=== PATIENT | male | born 1975 | race Two or more races ===

== ENCOUNTER 2017-11-10 19:31 | Emergency (ER) | payer SELFPAY ==
[~2017-11-10] VITALS: Ht 165.1 cm; Wt 63.5 kg
[2017-11-10 20:26] LABS: BASO # 0.1 x10^3/uL (0.0-0.2); BASO % 1 % (0-3); EOS % 0 % (0-3); HEMOGLOBIN 17.2 g/dL (13.0-17.5); LYMPH # 4.1 x10^3/uL (1.0-4.8); LYMPH % 42 % (24-48); MEAN CORPUSCULAR HEMOGLOBIN 31 pg (25-35); MEAN CORPUSCULAR HGB CONC 35 g/dL (31-37); MEAN CORPUSCULAR VOLUME 88 fL (79-100); MONO # 0.7 x10^3/uL (0.0-1.1); MONO % 7 % (0-9); NEUT # 4.8 x10^3uL (1.8-7.7); NEUT % 50 % (31-73); PLATELET COUNT 297 x10^3/uL (140-400); RED BLOOD COUNT 5.59 x10^6/uL (4.30-5.70); RED CELL DISTRIBUTION WIDTH 13.2 % (11.5-14.5); WHITE BLOOD COUNT 9.6 x10^3/uL (4.0-11.0)
[2017-11-10 20:29] LABS: BILIRUBIN,URINE NEGATIVE (NEG); CLARITY,URINE CLEAR; COLOR,URINE YELLOW; NITRITE,URINE NEGATIVE (NEG); PROTEIN,URINE NEGATIVE (NEG-TRACE); UROBILINOGEN,URINE 0.2 mg/dL (0.2 mg/dL)
[2017-11-10 20:35] LABS: AMPHETAMINE/METHAMPHETAMINE NEG (NEG); BARBITURATES NEG (NEG); BENZODIAZEPINES NEG (NEG); CANNABINOIDS POS (NEG); COCAINE NEG (NEG); METHADONE NEG (NEG); OPIATES NEG (NEG); PHENCYCLIDINE NEG (NEG)
[2017-11-10] MEDS: ONDANSETRON PF 4 MG/2 ML VIAL. IV ONE (20:36)
[2017-11-10] MEDS: LIDO:MAALOX 1:1 20 ML SINGLE DOSE. SWSW ONE (20:37)
[2017-11-10] MEDS: ASPIRIN 325 MG TABLET PO ONE (20:37)
[2017-11-10] MEDS: MORPHINE SULFATE 4 MG/ML VIAL. IV/SQ PRN (20:38)
--- NOTE | 2017-11-10 20:38 | PHYS DOC ---
Past Medical History Past Medical History: No Pertinent History Past Surgical History: No Surgical History Alcohol Use: Heavy Additional Information: 12 BEERS TODAY,STARTED DRINKING X 5 DAYS AGO Drug Use: None Adult General Chief Complaint Chief Complaint: NAUSEA/VOMITING/DIARRHA HPI HPI Patient is a 42 year old male with no significant medical history who presents today complaining of nausea and vomiting that began this morning after drinking heavily for 5 days. Patient states he is under a lot of stress. He states he moved from [place] to [place] and go to [place] 5 days ago and found his house was not completed. He states they hit moved to a different house which also has issues. He states his been drinking for 5 days straight area patient states he drank a pack of beer today. He states he started vomiting early this morning. He states he also has a 5 out of 10 left-sided chest pain only when he vomits that began this morning. Patient describes the pain as sharp and intermittent, denies the pain radiating. Denies any previous significant medical history. Denies anything relieving his pain but states vomiting makes it worse. He states when he is not vomiting he does not have the pain. He states he was also drinking on an empty stomach He is primarily Lao-speaking but also speaks some Urdu fairly well. Review of Systems Review of Systems Constitutional: Denies fever or chills [] Eyes: Denies change in visual acuity, redness, or eye pain [] HENT: Denies nasal congestion or sore throat [] Respiratory: Denies cough or shortness of breath [] Cardiovascular: Reports left-sided chest pain GI: Reports nausea and vomiting. Denies abdominal pain, nausea, vomiting, bloody stools or diarrhea [] : Denies dysuria or hematuria [] Musculoskeletal: Denies back pain or joint pain [] Integument: Denies rash or skin lesions [] Neurologic: Denies headache, focal weakness or sensory changes [] All other systems were reviewed and found to be within normal limits, except as documented in this note. Current Medications Current Medications Current Medications Medications (Trade) Dose Ordered Sig/Yaneli Start Time Stop Time Status Last Admin Dose Admin Aspirin (Leander Aspirin) 325 mg 1X ONCE 11/10/17 20:15 11/10/17 20:19 DC 11/10/17 20:37 325 MG Morphine Sulfate (Morphine Sulfate) 4 mg PRN Q15MIN PRN 11/10/17 20:15 11/10/17 23:15 DC 11/10/17 20:38 4 MG Multi-Ingredient Mouthwash/Gargle (Gi Cocktail) 20 ml 1X ONCE 11/10/17 20:15 11/10/17 20:19 DC 11/10/17 20:37 20 ML Multivitamins 10 ml/Thiamine HCl 100 mg/Folic Acid 1 mg/Sodium Chloride 1,011.2 ml @ 1,000.088 mls/hr 1X ONCE 11/10/17 20:30 11/10/17 21:30 DC 11/10/17 20:39 1,000.088 MLS/HR Ondansetron HCl (Zofran) 4 mg 1X ONCE 11/10/17 20:15 11/10/17 20:19 DC 11/10/17 20:36 4 MG Allergies Allergies Allergies Coded Allergies Type Severity Reaction Last Updated Verified No Known Medication Allergies Allergy Unknown 11/10/17 Yes Physical Exam Physical Exam Constitutional: Well developed, well nourished, no acute distress, non-toxic appearance. [] HENT: Normocephalic, atraumatic, bilateral external ears normal, oropharynx moist, no oral exudates, nose normal. [] Eyes: PERRLA, EOMI, conjunctiva normal, no discharge. [] Neck: Normal range of motion, no tenderness, supple, no stridor. [] Cardiovascular:Heart rate regular rhythm, no murmur [] Lungs & Thorax: Bilateral breath sounds clear to auscultation [] Abdomen: Bowel sounds normal, soft, no tenderness, no masses, no pulsatile masses. [] Skin: Warm, dry, no erythema, no rash. [] Back: No tenderness, no CVA tenderness. [] Extremities: No tenderness, no cyanosis, no clubbing, ROM intact, no edema. [] Neurologic: Alert and oriented X 3, normal motor function, normal sensory function, no focal deficits noted. [] Psychologic: Affect normal, judgement normal, mood normal. [] Current Patient Data Vital Signs Vital Signs Date Time Temp Pulse Resp B/P (MAP) Pulse Ox O2 Delivery O2 Flow Rate FiO2 11/10/17 23:00 94 16 100 Room Air 11/10/17 22:30 152/99 (116) 9/13/18 19:32 98.8 98.8 Lab Values Laboratory Tests Test 11/10/17 20:15 11/10/17 20:20 White Blood Count 9.6 x10^3/uL (4.0-11.0) Red Blood Count 5.59 x10^6/uL (4.30-5.70) Hemoglobin 17.2 g/dL (13.0-17.5) Hematocrit 49.0 % (39.0-53.0) Mean Corpuscular Volume 88 fL (79-100) Mean Corpuscular Hemoglobin 31 pg (25-35) Mean Corpuscular Hemoglobin Concent 35 g/dL (31-37) Red Cell Distribution Width 13.2 % (11.5-14.5) Platelet Count 297 x10^3/uL (140-400) Neutrophils (%) (Auto) 50 % (31-73) Lymphocytes (%) (Auto) 42 % (24-48) Monocytes (%) (Auto) 7 % (0-9) Eosinophils (%) (Auto) 0 % (0-3) Basophils (%) (Auto) 1 % (0-3) Neutrophils # (Auto) 4.8 x10^3uL (1.8-7.7) Lymphocytes # (Auto) 4.1 x10^3/uL (1.0-4.8) Monocytes # (Auto) 0.7 x10^3/uL (0.0-1.1) Eosinophils # (Auto) 0.0 x10^3/uL (0.0-0.7) Basophils # (Auto) 0.1 x10^3/uL (0.0-0.2) Prothrombin Time 12.3 SEC (11.7-14.0) Prothrombin Time INR 1.0 (0.8-1.1) PTT 30 SEC (24-38) Sodium Level 145 mmol/L (136-145) Potassium Level 3.6 mmol/L (3.5-5.1) Chloride Level 105 mmol/L (98-107) Carbon Dioxide Level 28 mmol/L (21-32) Anion Gap 12 (6-14) Blood Urea Nitrogen 4 mg/dL (8-26) L Creatinine 0.8 mg/dL (0.7-1.3) Estimated GFR (Cockcroft-Gault) 106.0 BUN/Creatinine Ratio 5 (6-20) L Glucose Level 121 mg/dL (70-99) H Calcium Level 8.9 mg/dL (8.5-10.1) Magnesium Level 2.0 mg/dL (1.8-2.4) Total Bilirubin 0.5 mg/dL (0.2-1.0) Aspartate Amino Transferase (AST) 25 U/L (15-37) Alanine Aminotransferase (ALT) 38 U/L (16-63) Alkaline Phosphatase 80 U/L (46-116) Creatine Kinase 105 U/L (39-308) Creatine Kinase MB (Mass) 0.9 ng/mL (0.0-3.6) Creatine Kinase MB Relative Index 0.9 % (0-4) Troponin I Quantitative < 0.017 ng/mL (0.000-0.055) LF-Bkr-A-Type Natriuretic Peptide 13 pg/mL (0-124) Total Protein 8.2 g/dL (6.4-8.2) Albumin 4.3 g/dL (3.4-5.0) Albumin/Globulin Ratio 1.1 (1.0-1.7) Lipase 163 U/L (73-393) Thyroid Stimulating Hormone (TSH) 1.825 uIU/mL (0.358-3.74) Urine Collection Type Unknown Urine Color Yellow Urine Clarity Clear Urine pH 7.0 Urine Specific [place] <=1.005 Urine Protein Negative mg/dL (NEG-TRACE) Urine Glucose (UA) Negative mg/dL (NEG) Urine Ketones (Stick) Negative mg/dL (NEG) Urine Blood Negative (NEG) Urine Nitrite Negative (NEG) Urine Bilirubin Negative (NEG) Urine Urobilinogen Dipstick 0.2 mg/dL (0.2 mg/dL) Urine Leukocyte Esterase Negative (NEG) Urine RBC 0 /HPF (0-2) Urine WBC 0 /HPF (0-4) Urine Squamous Epithelial Cells Occ /LPF Urine Bacteria 0 /HPF (0-FEW) Urine Mucus Slight /LPF Urine Opiates Screen Neg (NEG) Urine Methadone Screen Neg (NEG) Urine Barbiturates Neg (NEG) Urine Phencyclidine Screen Neg (NEG) Urine Amphetamine/Methamphetamine Neg (NEG) Urine Benzodiazepines Screen Neg (NEG) Urine Cocaine Screen Neg (NEG) Urine Cannabinoids Screen Pos (NEG) Urine Ethyl Alcohol Pos (NEG) Laboratory Tests 11/10/17 20:15 Laboratory Tests 11/10/17 20:15 EKG EKG 19:[address] Fam sinus tachycardia at rate 103 no STEMI Radiology/Procedures Radiology/Procedures [] Course & Med Decision Making Course & Med Decision Making Pertinent Labs and Imaging studies reviewed. (See chart for details) This is a 42-year-old male patient presenting to the ED today with complaints of nausea vomiting and began 5 days ago after he started drinking. Patient is also complaining of left-sided chest pain that only occurs when he is vomiting. Patient's labs are negative for any acute findings including cardiac workup and lipase of 163. I offered this patient admission to the hospital so that he can be seen by cardiology in AM, he declined. Patient states his pain is completely gone. He states he feels 9 out of 10 better overall after IV fluids, nausea medicines, and aspirin. PAT visited with patient. The provided him resources area patient himself states he won't stop drinking immediately. His heart score is 0. Provided PCP for follow-up as an outpatient as well as GI. Provided return precautions. Discharged with Kendra. Staff Physician Addendum: I was working in the ER during the course of this patient's visit. I was available for consultation as needed, but I was not directly involved in the care of this patient. Dragon Disclaimer Dragon Disclaimer This electronic medical record was generated, in whole or in part, using a voice recognition dictation system. Departure Departure Impression: Primary Impression: Alcohol abuse Additional Impressions: Nausea and vomiting Chest pain Disposition: HOME, SELF-CARE Condition: STABLE Referrals: KATHLEEN HICKEY MD follow up next week Patient Instructions: Alcohol Intoxication, [id number], Chest Pain ( Nonspecific), [id number], Nausea and Vomiting, [id number] Additional Instructions: You were evaluated in the emergency room. Your workup was negative for any acute findings. Consider getting help with alcohol use. Take the prescribed medications as needed. Come back to the ED at any point symptoms worsen. Scripts Ondansetron (ZOFRAN ODT) 4 Mg Tab.rapdis 1 TAB SL Q8HRS, #15 TAB Prov: ALIYAH ELIZABETH [employer] 11/10/17 Problem Qualifiers Additional Impressions: Nausea and vomiting Vomiting type: unspecified Vomiting Intractability: unspecified Qualified Codes: R11.2 - Nausea with vomiting, unspecified Chest pain Chest pain type: unspecified Qualified Codes: R07.9 - Chest pain, unspecified ALIYAH ELIZABETH APRN Nov 10, 2017 20:38 MARY BETH FAM MD Nov 11, 2017 05:10
[2017-11-10 20:39] LABS: PROTHROMBIN TIME PATIENT 12.3 SEC (11.7-14.0)
[2017-11-10] MEDS: MULTIVIT INFUSN,ADULT 4,VIT K 10 ML, THIAMINE 100 MG, FOLIC ACID 1 MG in IV NORMAL SALI... IV ONE (20:39)
[2017-11-10 20:40] LABS: BACTERIA,URINE 0 /HPF (0-FEW); RBC,URINE 0 /HPF (0-2); SQUAMOUS EPITHELIAL CELL,UR OCC /LPF; WBC,URINE 0 /HPF (0-4)
[2017-11-10 20:46] LABS: CALCIUM 8.9 mg/dL (8.5-10.1); CREATININE 0.8 mg/dL (0.7-1.3); POTASSIUM 3.6 mmol/L (3.5-5.1)
[2017-11-10 20:50] LABS: ALBUMIN 4.3 g/dL (3.4-5.0); ALBUMIN/GLOBULIN RATIO 1.1 (1.0-1.7); TOTAL BILIRUBIN 0.5 mg/dL (0.2-1.0); TOTAL PROTEIN 8.2 g/dL (6.4-8.2)
[2017-11-10 22:30] VITALS: BP 152/99
[2017-11-10] MEDS ORDERED: ONDA4TAB10 SL (22:58)
--- NOTE | 2017-11-11 06:14 | EKG ---
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
--- NOTE | 2017-11-11 08:44 | RAD ---
Chest radiograph 11/10/2017 8:37 PM INDICATION: Epigastric abdominal pain COMPARISON: None available TECHNIQUE: Portable upright frontal view of the chest is provided. FINDINGS: The cardiomediastinal silhouette is within normal limits. There are no pleural effusions. There is no pulmonary vascular congestion. There is no pneumothorax. The lungs are clear. No significant osseous abnormality is identified. IMPRESSION: No acute cardiopulmonary process. Electronically signed by: Ethel Navarro MD (11/11/2017 8:40 AM) [id number]
== END 2017-11-10 23:03 | disposition home or self-care (01) ==
LOC: ER 19:31
DX: F10.20 Alcohol dependence, uncomplicated (principal); R11.2 Nausea with vomiting, unspecified; R07.89 Other chest pain; Y90.9 Presence of alcohol in blood, level not specified
CPT/HCPCS: 36415; 71045; 80053; 80307; 81001; 82553; 83690; 83735; 83880; 84443; 84484; 85025; 85610; 85730; 93005; 96365; 96375; 99285; J2270; J2405; J7030; G0479